=== PATIENT | male | born 1960 | race Caucasian/White ===

== ENCOUNTER 2020-10-07 14:04 | Inpatient (IN) | payer OTHER ==
[~2020-10-07] VITALS: Ht 170.2 cm; Wt 88.0 kg
[2020-10-07 15:06] VITALS: Ht 170.2 cm; Wt 88.0 kg
[2020-10-07 16:42] LABS: BASOPHIL % 0.5 % (0.2-1.5)
[2020-10-07 16:57] LABS: PLATELET COUNT 86 x10^3mcL (152-348)
[2020-10-07 16:58] LABS: CALCIUM 8.9 mg/dL (8.5-10.1); CHLORIDE SERUM 102 mmol/L (98-107); CREATININE SERUM 1.2 mg/dL (0.7-1.3); GFR1 > 60 mL/min; GLUCOSE SERUM 425 mg/dL (74-106); POTASSIUM SERUM 4.5 mmol/L (3.5-5.1); SODIUM SERUM 134 mmol/L (136-145)
[2020-10-07 17:03] LABS: ALKALINE PHOSPHATASE 273 U/L (46-116); ALT/SGPT 38 U/L (16-63); AST/SGOT 30 U/L (15-37); BILIRUBIN TOTAL 0.96 mg/dL (0.20-1.00); TOTAL PROTEIN, SERUM 7.7 g/dL (6.4-8.2)
[2020-10-07 17:12] LABS: ALBUMIN 2.5 g/dL (3.4-5.0)
[2020-10-07 20:20] LABS: AMPHETAMINE QUAL UR POSITIVE (See below)
[2020-10-07 20:28] LABS: UA SPECIFIC GRAVITY <=1.005 (1.005-1.035); microscopic required? YES; urine erythrocyte 1+ (NEGATIVE)
[2020-10-07] MEDS ORDERED: L40I (23:21)
[2020-10-07] MEDS ORDERED: ALDACTONE25 MG (23:22)
[2020-10-07] MEDS ORDERED: GLIPIZIDE XL5 M2 PO (23:22)
[2020-10-07] MEDS ORDERED: ZESTRIL20 MG (23:22)
[2020-10-07] MEDS ORDERED: ASPIRIN ADULT L81 M5 PO (23:23)
[2020-10-07] MEDS ORDERED: NATURAL IRON65 MG (23:24)
[2020-10-08 00:32] VITALS: BP 149/86
[2020-10-08 07:01] VITALS: BP 146/76
[2020-10-08 07:42] LABS: CALCIUM 8.3 mg/dL (8.5-10.1); CARBON DIOXIDE 21.6 mmol/L (21-32); CHLORIDE SERUM 106 mmol/L (98-107); GFR1 > 60 mL/min; GLUCOSE SERUM 255 mg/dL (74-106); MAGNESIUM 1.8 mg/dL (1.8-2.4); POTASSIUM SERUM 3.8 mmol/L (3.5-5.1); SODIUM SERUM 139 mmol/L (136-145)
[2020-10-08 08:09] LABS: BASOPHIL % 0.9 % (0.2-1.5)
[2020-10-08 09:02] VITALS: BP 164/72
[2020-10-08 11:17] LABS: PLATELET COUNT 86 x10^3mcL (152-348)
[2020-10-08 12:12] VITALS: BP 145/75
[2020-10-08 15:59] VITALS: BP 142/80
[2020-10-08 21:02] VITALS: BP 151/84
[2020-10-09 05:11] VITALS: BP 144/63
[2020-10-09 07:22] LABS: BASOPHIL % 0.5 % (0.2-1.5)
[2020-10-09 07:29] LABS: PLATELET COUNT 79 x10^3mcL (152-348); RED CELL DISTRIBUTION WIDTH 16.3 % (12.1-16.2)
[2020-10-09 07:51] LABS: CALCIUM 7.9 mg/dL (8.5-10.1); CARBON DIOXIDE 22.4 mmol/L (21-32); CHLORIDE SERUM 110 mmol/L (98-107); CREATININE SERUM 1.1 mg/dL (0.7-1.3); GFR1 > 60 mL/min; GLUCOSE SERUM 109 mg/dL (74-106); MAGNESIUM 1.6 mg/dL (1.8-2.4); PHOSPHOROUS 3.6 mg/dL (2.5-4.9); POTASSIUM SERUM 3.3 mmol/L (3.5-5.1); SODIUM SERUM 143 mmol/L (136-145)
[2020-10-09 09:30] VITALS: BP 162/72
[2020-10-09 13:33] VITALS: BP 143/65
[2020-10-09 16:39] VITALS: BP 155/64
[2020-10-09 20:06] VITALS: BP 165/75
[2020-10-10 05:06] VITALS: BP 143/66
[2020-10-10 07:44] LABS: BASOPHIL % 0.8 % (0.2-1.5)
[2020-10-10 07:53] LABS: PLATELET COUNT 82 x10^3mcL (152-348)
[2020-10-10 08:41] LABS: ALKALINE PHOSPHATASE 207 U/L (46-116); ALT/SGPT 35 U/L (16-63); AST/SGOT 42 U/L (15-37); BILIRUBIN TOTAL 0.62 mg/dL (0.20-1.00); C REACTIVE PROTEIN 1.2 mg/dL (<=0.9); CALCIUM 8.3 mg/dL (8.5-10.1); CARBON DIOXIDE 21.8 mmol/L (21-32); CHLORIDE SERUM 110 mmol/L (98-107); CREATININE SERUM 1.3 mg/dL (0.7-1.3); GFR1 > 60 mL/min; GLUCOSE SERUM 206 mg/dL (74-106); MAGNESIUM 1.6 mg/dL (1.8-2.4); PHOSPHOROUS 3.5 mg/dL (2.5-4.9); POTASSIUM SERUM 3.4 mmol/L (3.5-5.1); SODIUM SERUM 143 mmol/L (136-145); TOTAL PROTEIN, SERUM 6.7 g/dL (6.4-8.2)
[2020-10-10 08:43] LABS: ALBUMIN 2.2 g/dL (3.4-5.0)
[2020-10-10 09:07] VITALS: BP 170/62
[2020-10-10] MEDS ORDERED: LAC30L PO (09:28)
[2020-10-10 12:42] VITALS: BP 167/55
[2020-10-10 14:29] VITALS: BP 167/55
== END 2020-10-10 16:51 | disposition home or self-care (01) | DRG 279 ==
LOC: ED 14:04 → DU 19:42
PROVIDERS: Emergency Medicine; ADMIT Internal Medicine; ATTEND Internal Medicine
DX: K72.90 Hepatic failure, unspecified without coma (principal); N17.0 Acute kidney failure with tubular necrosis; E43 Unspecified severe protein-calorie malnutrition; E11.65 Type 2 diabetes mellitus with hyperglycemia; E87.1 Hypo-osmolality and hyponatremia; K46.0 Unspecified abdominal hernia with obstruction, without gangrene; I10 Essential (primary) hypertension; K74.60 Unspecified cirrhosis of liver; E11.9 Type 2 diabetes mellitus without complications; Z79.899 Other long term (current) drug therapy; Z79.82 Long term (current) use of aspirin; Z87.891 Personal history of nicotine dependence; I16.0 Hypertensive urgency; D64.9 Anemia, unspecified; Z68.25 Body mass index [BMI] 25.0-25.9, adult
CPT/HCPCS: 82962; 85378; 92526-GN; 92610-GN; 97116-GP; 97530-GP; A9698; C9113; G0378; G0480; J0696; J1815; J2060; J7030; Q9967; U0003